=== PATIENT | male | born 1940 | race Caucasian/White ===

== ENCOUNTER 2018-02-21 18:26 | Emergency (ER) | payer MEDICARE, OTHER ==
[~2018-02-21] VITALS: Ht 177.8 cm; Wt 145.0 kg
[2018-02-21] MEDS ORDERED: morphine 4 MG/ML inj SYRINge IV ONE (19:15)
[2018-02-21] MEDS ORDERED: TETanus/Pertussis (Acell)/Diphther VAC/PF (Tdap-Adult) 0.5ml syringe IM ONE (20:05)
[2018-02-22 01:09] VITALS: BP 95/62
== END 2018-02-22 01:13 | disposition home or self-care (01) ==
LOC: ER 18:27
DX: S46.912A Strain of unspecified muscle, fascia and tendon at shoulder and upper arm level, left arm, initial encounter (principal); S00.01XA Abrasion of scalp, initial encounter; E11.9 Type 2 diabetes mellitus without complications; Z98.890 Other specified postprocedural states; Z88.0 Allergy status to penicillin; Z88.8 Allergy status to other drugs, medicaments and biological substances; Z87.891 Personal history of nicotine dependence; W18.39XA Other fall on same level, initial encounter; Y93.89 Activity, other specified; Y92.89 Other specified places as the place of occurrence of the external cause; Y99.8 Other external cause status
CPT/HCPCS: 70450; 72125; 72131; 73030; 73700; 90471; 90715; 96374; 99284; J2270